=== PATIENT | female | born 1995 | race American Indian/Alaskan Native ===

== ENCOUNTER 2019-04-28 12:52 | Emergency (ER) | payer SELFPAY ==
--- NOTE | 2019-04-28 13:03 | Emergency Department Report ---
Blank Doc - Documentation Documentation: 24-year-old female that presents with neck pain with radiation to head area. Denies any trauma. Stated wake up this way. This initial assessment/diagnostic orders/clinical plan/treatment(s) is/are subject to change based on patient's health status, clinical progression and re- assessment by fellow clinical providers in the ED. Further treatment and workup at subsequent clinical providers discretion. Patient/guardians urged not to elope from the ED as their condition may be serious if not clinically assessed and managed. Initial orders include: 1- Patient sent to [facility] for further evaluation and treatment
[2019-04-28] MEDS ORDERED: KETOROLAC 30 MG/1 ML INJ IM ONE (16:25)
--- NOTE | 2019-04-28 16:25 | Emergency Department Report ---
ED Headache HPI - General Chief Complaint: Headache Stated Complaint: NECK/BACK PAIN Time Seen by Provider: 04/28/19 13:03 Source: patient, RN notes reviewed Exam Limitations: no limitations - History of Present Illness Initial Comments: This is a 24-year-old -[place] female who presents to the emergency room with headache radiating into her neck since awakening. Patient denies prior history of headaches. She is currently taking ibuprofen and naproxen with minimal improvement of symptoms. Patient reports pain is worse when she moves her neck from [id number] or down. She denies visual changes, dizziness, cough, fever, chills, numbness or tingling. Timing/Duration: 4-6 hours Quality: moderate Head Injury Location: occipital Recent Head Trauma: no recent headache/trauma Modifying Factors: improves with: movement Associated Symptoms: denies symptoms Allergies/Adverse Reactions: Allergies No Known Allergies Allergy (Unverified 04/28/19 12:54) Home Medications: Ambulatory Orders Ibuprofen [Motrin 800 MG tab] 800 mg PO Q8HR PRN #20 tablet 04/28/19 ED Review of Systems ROS: Stated complaint: NECK/BACK PAIN Other details as noted in HPI Constitutional: denies: chills, fever Respiratory: denies: cough, shortness of breath, wheezing Cardiovascular: denies: chest pain, palpitations Gastrointestinal: denies: abdominal pain, nausea, diarrhea Musculoskeletal: arthralgia (posterior neck pain). denies: back pain, joint swelling Skin: denies: rash, lesions Neurological: headache. denies: weakness, paresthesias Psychiatric: denies: anxiety, depression ED Past Medical Hx - Past Medical History Previous Medical History?: No - Surgical History Past Surgical History?: No - Social History Smoking Status: Current Every Day Smoker Substance Use Type: None - Medications Home Medications: Home Medications Medication Instructions Recorded Confirmed Last Taken Type Ibuprofen [Motrin 800 MG tab] 800 mg PO Q8HR PRN #20 tablet 04/28/19 Unknown Rx ED Physical Exam - General Limitations: No Limitations General appearance: alert, in no apparent distress, obese - Head Head exam: Present: atraumatic, normocephalic - Neck Neck exam: Present: full ROM. Absent: tenderness, meningismus, lymphadenopathy - Respiratory Respiratory exam: Present: normal lung sounds bilaterally. Absent: respiratory distress - Cardiovascular Cardiovascular Exam: Present: regular rate, normal rhythm. Absent: systolic murmur, diastolic murmur, rubs, gallop - GI/Abdominal GI/Abdominal exam: Present: soft, normal bowel sounds - Neurological Exam Neurological exam: Present: alert, oriented X3 - Psychiatric Psychiatric exam: Present: normal affect, normal mood - Skin Skin exam: Present: warm, dry, intact, normal color. Absent: rash ED Course Vital Signs 04/28/19 13:02 Temperature 99.0 F Pulse Rate 86 Respiratory 16 Rate Blood Pressure 139/63 O2 Sat by Pulse 100 Oximetry ED Medical Decision Making - Radiology Data Radiology results: report reviewed CT head/brain wo con INDICATION / CLINICAL INFORMATION: 24 years Female; headache. TECHNIQUE: Routine CT head without contrast. All CT scans at this location are performed using CT dose reduction for ALARA by means of automated exposure control. COMPARISON: None. FINDINGS: BRAIN / INTRACRANIAL CONTENTS: The motion significantly degrades the image quality, particularly the inferior segments. However, the brain appears to grossly demonstrate appropriate attenuation. The ventricular system is within normal limits in size and configuration. There is no definitive CT evidence of acute intracranial hemorrhage or significant mass effect. ORBITS: No significant abnormality of visualized orbits. SINUSES / MASTOIDS: No significant abnormality the visualized paranasal sinuses or mastoid air cells. CRANIOCERVICAL JUNCTION: No significant abnormality. ADDITIONAL FINDINGS: None. IMPRESSION: 1. The study is limited by motion. However, there is no gross CT evidence of acute intracranial process. - Medical Decision Making Patient is stable and was examined by me. CT of head obtained and dictated by radiologist. The study is limited by motion. However, there is no gross CT evidence of acute intracranial process. Given toradol once in ER. Reports feeling much better. Start ibuprofen 800 mg by mouth 3 times a day when necessary for headache. No further questions noted by the patient. Discharged home in stable condition. Follow up with PCP in 24-72 hours. Critical care attestation.: If time is entered above; I have spent that time in minutes in the direct care of this critically ill patient, excluding procedure time. ED Disposition Clinical Impression: Neck pain Headache Qualifiers: Headache type: tension-type Headache chronicity pattern: acute headache Intractability: not intractable Qualified Code(s): G44.209 - Tension-type headache, unspecified, not intractable Disposition: DC-01 TO HOME OR SELFCARE Is pt being admited?: No Condition: Stable Instructions: Tension Headache (ED), Cervical Radiculopathy (ED) Additional Instructions: Take medication at start of headache. Moderate caffeine intake. Eat at scheduled times or 3 meals a day with snacks. Follow up with primary care provider in 24-72 hours. Prescriptions: Ibuprofen [Motrin 800 MG tab] 800 mg PO Q8HR PRN #20 tablet PRN Reason: Pain , Severe (7-10) Referrals: [facility] [Outside] - 3-5 Days [facility] [Outside] - 3-5 Days [facility] [Outside] - 3-5 Days Forms: Work/School Release Form(ED) Time of Disposition: 18:50
--- NOTE | 2019-04-28 18:31 | Cat Scan Report ---
CT head/brain wo con INDICATION / CLINICAL INFORMATION: 24 years Female; headache. TECHNIQUE: Routine CT head without contrast. All CT scans at this location are performed using CT dos e reduction for ALARA by means of automated exposure control. COMPARISON: None. FINDINGS: BRAIN / INTRACRANIAL CONTENTS: The motion significantly degrades the image quality, particularly the inferior segments. However, the brain appears to grossly demonstrate appropriate attenuation. The lia tricular system is within normal limits in size and configuration. There is no definitive CT evidence of acute intracranial hemorrhage or significant mass effect. ORBITS: No significant abnormality of visualized orbits. SINUSES / MASTOIDS: No significant abnormality the visualized paranasal sinuses or mastoid air cells. CRANIOCERVICAL JUNCTION: No significant abnormality. ADDITIONAL FINDINGS: None. IMPRESSION: 1. The study is limited by motion. However, there is no gross CT evidence of acute intracranial proce ss. Signer Name: Juan F Toscano MD Signed: 04/28/2019 6:26 PM Workstation Name: [id number]
[2019-04-28 19:25] VITALS: BP 120/63
== END 2019-04-28 19:10 | disposition home or self-care (01) ==
LOC: ED 12:52
DX: R51 Headache (principal); M54.2 Cervicalgia; F17.200 Nicotine dependence, unspecified, uncomplicated
CPT/HCPCS: 70450; 96372; 99283; J1885